=== PATIENT | female | born 1995 | race Caucasian/White ===

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

== ENCOUNTER 2017-01-18 19:56 | Emergency (ER) | payer OTHER ==
[~2017-01-18] VITALS: Ht 154.9 cm; Wt 44.9 kg
[2017-01-18] MEDS ORDERED: Ondansetron 8 mg ODT Tablet ONE (19:58)
[2017-01-18 20:10] VITALS: BP 107/78; PULSE 89; RESP 18; O2SAT 100
--- NOTE | 2017-01-18 21:15 | ED.REPORT ---
HPI-NVD Date of Service Jan 18, 2017 ED Provider: Christiano Hebert MD A 21 year old female with a history of meningitis, lymphadenitis, and shingles presents to the ED with recurrent abdominal pain onset 1400 today. The pain is diffuse but most severe in the epigastrium. It is described as achy in nature, rated 2/10. The patient also reports nausea and vomiting as well as ongoing chronic problems of reduced appetite and weight loss. The patient is being followed by Dr. Francis for recurrent bilious emesis of uncertain etiology for which she underwent a small bowel Barium study today at 1300. She denies hematochezia, melena, hematemesis, or other symptoms. The patient admits to smoking marijuana daily. Nursing Notes Stated Complaint: VOMITING Chief Complaint: Female Abdominal Pain Nursing Notes Reviewed: Yes Allergies: Coded Allergies: No Known Allergies (Verified , 01/18/17) Scheduled PRN Ondansetron (Zofran) 4 Mg Tablet 4 MG PO Q4H PRN PRN For Nausea Miscellaneous Medications Norgestimate-Ethinyl Estradiol (Ortho Tri-Cyclen) 1 Each Tablet 1 EACH PO General Time Seen by MD: 21:14 Chief Complaint Abd pain, constant Hx Obtained From: Patient Arrived By: Walk-in Onset Occurred: 5 - 8 hours ago Symptom Duration: Since onset Location: : Diffuse: Epigastric Quality: Painful Severity: Current: Moderate Severity: Maximum: Moderate Associated with: Denies: Blood in stool, Fever, Hematemesis Pertinent Negative: Relieved by nothing Recent Healthcare: Recent doctor visit Similar Sx Previous: Yes Past Medical History Past Medical History Notes: Being followed by Dr. Francis for recurrent bilious emesis of uncertain etiology Past Medical History Meningitis x2 Lymphadenitis Shingles Past Surgical History Colonoscopy Smoking History Current Every Day Smoker Social History Drug Use: THC Other Social History: Good social support Ambulatory Status Independent Review of Systems Review of Systems Note: + Reduced appetite Constitutional: Reports: Recent wt loss, Denies: Fever GI: Reports: Abdominal pain, Nausea, Vomiting, Denies: Hematemesis, Hematochezia, Melena Complete sys rev & neg: except as marked. Respiratory: Denies: Non-productive cough, Shortness of breath Physical Exam Initial Vital Signs Vital Signs (First) Date Time Temp Pulse Resp B/P Pulse Ox O2 Delivery O2 Flow Rate FiO2 01/18/17 20:10 36.8 89 18 107/78 100 Room Air Initial VS: Reviewed, Vital signs normal Head / Eyes: Atraumatic, Normocephalic Neck: Supple, Full range of motion Respiratory: Breath sounds normal, Clear to auscultation, No respiratory distress Cardiovascular: Regular rate & rhythm, Heart sounds normal Skin: Warm, Dry, No cyanosis Neurologic: Alert, Oriented, Nonfocal Psychiatric: Mood/affect normal, Behavior normal, Normal thought content General/Constitutional: Awake, Alert Distress / Hydration: Positive: Dehydration mild Appearance / Presentation: Positive: Pale Thin, emaciated Abdomen: Soft, No distention Tenderness/Guarding/Rebound: Positive: Tender diffuse (Mild, worse on the left) Bowel Sounds / Distention: Positive: Bowel sounds hyperactive ENT: Airway patent Mouth: Positive: Mucous membranes dry Interpretation & Diagnostics Lab Results Interpretation Test 01/18/17 22:35 Hold Purple Top Tube Received (Received) Hold Blue Top Tube Received (Received) Hold Red Top Tube Received (Received) Hold [place] Top Tube Received (Received) Hold Robin Top Tube Received (Received) Re-Eval/Medical Decision Med Decision/Clinical Course 21-year-old female who is had extensive GI workup by Dr. Francis. She now presents with recurrent abdominal pain with nausea and vomiting. She is a daily marijuana user but she is convinced that this is not a contributor to her problem. She responded well to Phenergan and fluids. She is discharged home in improved condition. Source of Hx: Old records Re-Evaluation/Progress : Time of Eval: 23:43 Patient Status: Condition improved Re-Evaluation/Progress Note: Discussed with patient lab results, diagnosis, and plan for discharge. Follow-up and return to the ER instructions given. Patient agrees with plan for care and all questions were addressed. Counseled Regarding: Diagnosis, Lab results, Need for follow-up, When/why to return to ED Discharge & Departure Impression: Primary Impression: Abdominal pain Abdominal location: generalized Qualified Code: R10.84 - Generalized abdominal pain Additional Impression: Nausea & vomiting Vomiting type: unspecified Vomiting Intractability: unspecified Qualified Code: R11.2 - Nausea with vomiting, unspecified Disposition: Home Discharge Condition All VS Reviewed: Yes Condition: Improved Patient Instructions: Acute Nausea and Vomiting (ED) Additional Instructions: You received fluids and Phenergan here in the emergency room with good relief of your symptoms. Small amounts of clear liquids and resume your regular medications. Follow-up with your primary doctor and/or specialist as needed. Referrals: Darby Russo (PCP) Chuy Francis MD Attestation Portions of this note were transcribed by Jo Treviño. I, Dr. Hebert, personally performed the history, physical exam, and medical decision-making; I reviewed and confirmed the accuracy of the information in the transcribed note. Signed by: Puneet Cruz, 01/19/2017, 01:15 copies to: Darby Russo; Chuy Francis MD, Howard L MD Jan 18, 2017 21:15 JO TREVIÑO Jan 18, 2017 21:42
[2017-01-18] MEDS ORDERED: 0.9% Sodium Chloride 1,000 ML IV ONE (21:45)
[2017-01-18] MEDS ORDERED: Promethazine Inj 25 MG in Dextrose 5%-Pha MIX 50 ML IV ONE (21:45)
[2017-01-19 00:06] VITALS: BP 93/56; PULSE 84; RESP 16; O2SAT 96
== END 2017-01-19 | disposition home or self-care (01) ==
LOC: SED 19:56
DX: R10.84 Generalized abdominal pain (principal); R11.2 Nausea with vomiting, unspecified; F17.200 Nicotine dependence, unspecified, uncomplicated; F12.10 Cannabis abuse, uncomplicated; Z86.61 Personal history of infections of the central nervous system
CPT/HCPCS: 96361; 96374; 99284; J2550; J7030